=== PATIENT | male | born 1950 | race Caucasian/White ===

== ENCOUNTER 2017-10-20 12:32 | Inpatient (IN) | payer OTHER, MEDICAID ==
[~2017-10-20] VITALS: Ht 172.7 cm; Wt 78.0 kg
[2017-10-20 16:45] VITALS: BP_SYST 145
[2017-10-20] MEDS ORDERED: MAGN400O4 PO (18:13)
[2017-10-20] MEDS ORDERED: CLOZ100T32 PO (18:13)
[2017-10-20] MEDS ORDERED: DOCU-144 PO (18:13)
[2017-10-20] MEDS ORDERED: MELA3TAB37 PO (18:13)
[2017-10-20] MEDS ORDERED: COG1 PO (18:13)
[2017-10-20] MEDS ORDERED: DIVA500T4 PO (18:13)
[2017-10-20] MEDS ORDERED: ACET325T53 PO (18:13)
[2017-10-20] MEDS ORDERED: DONE10TA44 PO (18:13)
[2017-10-20] MEDS ORDERED: MILK OF MAGNESIA 30 ML UDC PO PRN ×2 (19:30)
[2017-10-20] MEDS ORDERED: ACETAMINOPHEN 325 MG TABLET PO PRN (19:30)
[2017-10-20] MEDS ORDERED: D5/0.45 NS 500 ML IV ONE (19:45)
[2017-10-20 21:15] VITALS: BP_SYST 135
[2017-10-20] MEDS: DONEPEZIL HCL 5 MG TABLET (ARICEPT) PO SCH (22:39)
[2017-10-20] MEDS: BENZTROPINE MESYLATE 1 MG TABLET PO SCH (22:40)
[2017-10-20] MEDS: DIVALPROEX SODIUM 500 MG TAB.SR.24H (DEPAKOTE ER) PO SCH (22:40)
[2017-10-20] MEDS: DOCUSATE SODIUM 100 MG CAPSULE PO SCH (22:40)
[2017-10-20] MEDS ORDERED: PIPERACILLIN/TAZOBACTAM 3.375 GM/VIAL (ZOSYN) IV ONE (23:06)
[2017-10-20] MEDS: PIPERACILLIN/TAZO 3.375/DEX-IS 50 ML IV SCH (23:55)
[2017-10-21 00:50] VITALS: BP_SYST 135
[2017-10-21] MEDS: PIPERACILLIN/TAZO 3.375/DEX-IS 50 ML IV SCH ×2 (07:12→13:30)
[2017-10-21 07:13] LABS: BASOPHILS # (AUTO) 0.1 K/uL (0.0-0.2); BASOPHILS % (AUTO) 0.5 % (0.0-2.0); EOSINOPHILS # (AUTO) 0.1 K/uL (0.0-0.4); EOSINOPHILS % (AUTO) 0.7 % (0.0-4.0); HEMATOCRIT 35.9 % (36-54); HEMOGLOBIN 11.9 g/dL (14.0-18.0); LYMPHOCYTES # (AUTO) 0.9 K/uL (1.0-5.5); LYMPHOCYTES % (AUTO) 8.2 % (20.5-51.5); MEAN CORPUSCULAR HEMOGLOBIN 28 pg (27-31); MEAN CORPUSCULAR HGB CONC 33 % (32-36); MEAN CORPUSCULAR VOLUME 83 fL (79.0-98.0); MONOCYTES # (AUTO) 1.6 K/uL (0.0-1.0); MONOCYTES % (AUTO) 14.2 % (1.7-9.3); NEUTROPHILS # (AUTO) 8.8 K/uL (1.8-7.7); NEUTROPHILS % (AUTO) 76.4 % (40.0-70.0); PLATELET COUNT (AUTO) 216 K/uL (130-430); RED BLOOD CELL COUNT(AUTO) 4.35 MIL/uL (4.2-6.2); RED CELL DISTRIBUTION WIDTH 14.2 % (9.0-15.0); WHITE BLOOD COUNT (AUTO) 11.4 K/uL (4.8-10.8)
[2017-10-21 07:48] LABS: CALCIUM 9.3 mg/dL (8.4-11.0); CREATININE 1.06 mg/dL (0.55-1.30); PHOSPHORUS 3.5 mg/dL (2.7-4.5); POTASSIUM 5.4 mmol/L (3.5-5.1)
[2017-10-21 08:17] VITALS: BP_SYST 126
[2017-10-21 08:31] LABS: ERYTHROCYTE SEDIMENTATION RATE 74 MM/HR (0-15)
[2017-10-21] MEDS: ENOXAPARIN SODIUM 40 MG/0.4 ML SYRINGE SUBCUT SCH ×2 (08:40→08:43)
[2017-10-21] MEDS: DIVALPROEX SODIUM 500 MG TAB.SR.24H (DEPAKOTE ER) PO SCH ×2 (08:40→20:53)
[2017-10-21] MEDS: DOCUSATE SODIUM 100 MG CAPSULE PO SCH ×2 (08:40→20:53)
[2017-10-21] MEDS: BENZTROPINE MESYLATE 1 MG TABLET PO SCH ×2 (08:40→20:53)
[2017-10-21 12:00] VITALS: BP_SYST 139
[2017-10-21 16:12] VITALS: BP_SYST 137
[2017-10-21] MEDS: AMPICILLIN SODIUM/SULBACTAM NA 1.5 GM in NS 50 ML IV SCH ×2 (17:46→23:38)
[2017-10-21] MEDS ORDERED: VANCOMYCIN HCL 1,000 MG in NS 250 ML IV ONE (18:00)
[2017-10-21 19:53] VITALS: BP_SYST 144
[2017-10-21] MEDS: DONEPEZIL HCL 5 MG TABLET (ARICEPT) PO SCH (20:53)
[2017-10-21] MEDS: CLOZAPINE 100 MG TAB PO SCH (20:53)
[2017-10-22 00:13] VITALS: BP_SYST 146
[2017-10-22] MEDS: AMPICILLIN SODIUM/SULBACTAM NA 1.5 GM in NS 50 ML IV SCH ×3 (05:36→23:07)
[2017-10-22] MEDS: BENZTROPINE MESYLATE 1 MG TABLET PO SCH ×2 (10:12→20:24)
[2017-10-22] MEDS: DOCUSATE SODIUM 100 MG CAPSULE PO SCH ×2 (10:12→20:31)
[2017-10-22] MEDS: DIVALPROEX SODIUM 500 MG TAB.SR.24H (DEPAKOTE ER) PO SCH ×2 (10:12→20:24)
[2017-10-22] MEDS: VANCOMYCIN HCL 750 MG in NS 250 ML IV SCH ×2 (10:15→23:12)
[2017-10-22] MEDS: ENOXAPARIN SODIUM 40 MG/0.4 ML SYRINGE SUBCUT SCH (10:48)
[2017-10-22 12:00] VITALS: BP_SYST 149
[2017-10-22] MEDS ORDERED: IOHEXOL 100 ML IV ONE (14:12)
[2017-10-22] MEDS: D5/0.45 NS 1,000 ML IV SCH ×2 (16:35→23:06)
[2017-10-22 17:25] VITALS: BP_SYST 142
[2017-10-22 19:00] VITALS: BP_SYST 164
[2017-10-22 20:00] VITALS: BP_SYST 164
[2017-10-22] MEDS: MUPIROCIN NASAL 2% OINT. 1 GM NS SCH (20:22)
[2017-10-22] MEDS: DONEPEZIL HCL 5 MG TABLET (ARICEPT) PO SCH (20:23)
[2017-10-22] MEDS: CLOZAPINE 100 MG TAB PO SCH (20:31)
[2017-10-22] MEDS ORDERED: DOCUSATE SODIUM 100 MG CAPSULE PO ONE (20:34)
[2017-10-23] MEDS: AMPICILLIN SODIUM/SULBACTAM NA 1.5 GM in NS 50 ML IV SCH ×4 (00:42→18:47)
[2017-10-23 01:54] VITALS: BP_SYST 160
[2017-10-23] MEDS: D5/0.45 NS 1,000 ML IV SCH ×2 (06:05→17:00)
[2017-10-23 06:55] LABS: BASOPHILS % (AUTO) 0.7 % (0.0-2.0); EOSINOPHILS # (AUTO) 0.2 K/uL (0.0-0.4); EOSINOPHILS % (AUTO) 2.8 % (0.0-4.0); HEMOGLOBIN 11.9 g/dL (14.0-18.0); LYMPHOCYTES # (AUTO) 0.7 K/uL (1.0-5.5); LYMPHOCYTES % (AUTO) 10.9 % (20.5-51.5); MEAN CORPUSCULAR HEMOGLOBIN 28 pg (27-31); MEAN CORPUSCULAR HGB CONC 33 % (32-36); MEAN CORPUSCULAR VOLUME 83 fL (79.0-98.0); MONOCYTES % (AUTO) 14.6 % (1.7-9.3); NEUTROPHILS # (AUTO) 4.8 K/uL (1.8-7.7); PLATELET COUNT (AUTO) 276 K/uL (130-430); RED BLOOD CELL COUNT(AUTO) 4.33 MIL/uL (4.2-6.2); RED CELL DISTRIBUTION WIDTH 13.6 % (9.0-15.0); WHITE BLOOD COUNT (AUTO) 6.7 K/uL (4.8-10.8)
[2017-10-23 06:57] LABS: CALCIUM 9.1 mg/dL (8.4-11.0); CREATININE 0.72 mg/dL (0.55-1.30); POTASSIUM 4.7 mmol/L (3.5-5.1)
[2017-10-23 08:46] VITALS: BP_SYST 139
[2017-10-23] MEDS: DIVALPROEX SODIUM 500 MG TAB.SR.24H (DEPAKOTE ER) PO SCH ×2 (10:21→22:25)
[2017-10-23] MEDS: DOCUSATE SODIUM 100 MG CAPSULE PO SCH ×2 (10:21→10:22)
[2017-10-23] MEDS: ENOXAPARIN SODIUM 40 MG/0.4 ML SYRINGE SUBCUT SCH (10:21)
[2017-10-23] MEDS: BENZTROPINE MESYLATE 1 MG TABLET PO SCH ×2 (10:21→22:25)
[2017-10-23] MEDS: MUPIROCIN NASAL 2% OINT. 1 GM NS SCH ×2 (10:21→22:25)
[2017-10-23] MEDS: VANCOMYCIN HCL 750 MG in NS 250 ML IV SCH ×2 (10:22→22:47)
[2017-10-23 14:31] VITALS: BP_SYST 156
[2017-10-23 16:17] VITALS: BP_SYST 166
[2017-10-23 20:10] VITALS: BP_SYST 166
[2017-10-23] MEDS: CLOZAPINE 100 MG TAB PO SCH (21:00)
[2017-10-23] MEDS: DONEPEZIL HCL 5 MG TABLET (ARICEPT) PO SCH (22:24)
[2017-10-23] MEDS: HALOPERIDOL LACTATE 5 MG/ML VIAL IM PRN (22:26)
[2017-10-24 00:50] VITALS: BP_SYST 162
[2017-10-24] MEDS: AMPICILLIN SODIUM/SULBACTAM NA 1.5 GM in NS 50 ML IV SCH ×5 (00:56→17:50)
[2017-10-24 08:09] VITALS: BP_SYST 156
[2017-10-24] MEDS: MUPIROCIN NASAL 2% OINT. 1 GM NS SCH (09:00)
[2017-10-24] MEDS: VANCOMYCIN HCL 750 MG in NS 250 ML IV SCH (09:44)
[2017-10-24] MEDS: DOCUSATE SODIUM 100 MG CAPSULE PO SCH (09:44)
[2017-10-24] MEDS: BENZTROPINE MESYLATE 1 MG TABLET PO SCH (09:44)
[2017-10-24] MEDS: DIVALPROEX SODIUM 500 MG TAB.SR.24H (DEPAKOTE ER) PO SCH (09:44)
[2017-10-24] MEDS: ENOXAPARIN SODIUM 40 MG/0.4 ML SYRINGE SUBCUT SCH (09:44)
[2017-10-24] MEDS: HALOPERIDOL LACTATE 5 MG/ML VIAL IM PRN ×2 (09:45→17:50)
[2017-10-24] MEDS: D5/0.45 NS 1,000 ML IV SCH ×2 (09:46→13:00)
[2017-10-24 12:28] VITALS: BP_SYST 179
[2017-10-24 17:27] VITALS: BP_SYST 145
[2017-10-24 18:02] VITALS: BP_SYST 145
[2017-10-24 19:32] VITALS: BP_SYST 157
== END 2017-10-24 20:28 | DRG 155 ==
LOC: SMU 16:35
PROVIDERS: ADMIT Family Medicine; ATTEND Family Medicine
DX: K11.21 Acute sialoadenitis (principal); L03.211 Cellulitis of face; F03.90 Unspecified dementia, unspecified severity, without behavioral disturbance, psychotic disturbance, mood disturbance, and anxiety; L02.01 Cutaneous abscess of face; R25.2 Cramp and spasm; F29 Unspecified psychosis not due to a substance or known physiological condition; G40.909 Epilepsy, unspecified, not intractable, without status epilepticus; Z22.322 Carrier or suspected carrier of Methicillin resistant Staphylococcus aureus
CPT/HCPCS: 36415; 70486-TC; 70487; 80048; 83735-TC; 84100-TC; 85025; 85651-TC; 87040-TC; 87081; 97110-GP; 97116-GP; 97530-GP; J0295; J1630; J1650; J2543; J3370; J7040; J7050; J7060; Q9967